=== PATIENT | male | born 1955 | race Caucasian/White ===

== ENCOUNTER → 2017-12-05 08:12 | Outpatient (CLI) | payer OTHER, SELFPAY | PROVIDERS: Visit Provider Internal Medicine | DX: Z11.59 Encounter for screening for other viral diseases (principal) | CPT/HCPCS: 86803; 86804 ==

== ENCOUNTER 2019-07-11 10:25 | Emergency (ER) | payer OTHER, SELFPAY ==
[2019-07-11 10:26] VITALS: BP 159/90; PULSE 73; RESP 15; TEMP 36.7; O2SAT 98; BMI 33.0
--- NOTE | 2019-07-11 10:40 | ED.DCSUM_ITS ---
- ER Visit Summary Date of Service: 07/11/19 Chief Complaint: Accidentally took 4 amlodipine History of Present Illness: The patient is a 63 M G of [id number]-quhkclhjs diabetes and hypertension. He is on amlodipine for high blood pressure. Recently developed poison jamila in his upper extremities he was supposed to take for prednisone this morning. He accidentally took 4 of his amlodipine. He denies any symptoms at all. He does not feel lightheaded or dizzy. He has not passed out. This occurred around 9 AM it is now been an hour and a half since that time. Physical Examination: Older male no acute distress. Vital signs are stable and afebrile. H EENT exam unremarkable. Neck nontender. Lungs clear to auscultation bilaterally. Heart regular rate and rhythm rate about 70 no murmur. Abdomen soft nontender normal bowel sounds no peritoneal signs. Patient moving all 4 extremities. Neurovascular intact. Calves are nontender without edema. Neurologically is awake alert with no focal motor deficits. Test Results: None Emergency Department Course and Treatment: Patient He took for his amlodipine pills. He will be watched for an hour and recheck his blood pressure. He mentioned earlier this week he was having lower abdominal discomfort. He was seen by his primary care physician. They have a plan on that. He states is actually getting better and does not want to be worked up for it. Currently he is not having any abdominal pain. Treatment Plan: Return if feeling lightheaded or dizzy. Disposition: Discharge Impression: Accidental overdose on his amlodipine This note was generated with [employer] dictation software. It may contain incorrect words, spelling, and punctuation that were not noted in review of the chart prio r to signing ED Disposition - Plan for ED Patient: Referrals: Isra Pastor MD [Primary Care Provider] -
--- NOTE | 2019-07-11 10:43 | ED.DEP ---
ED Disposition - Plan for ED Patient: Disposition: Home or Assisted Living Instructions: OVERDOSE, Accidental (Adult) Referrals: Dimitris Strickland MD [STAFF PHYSICIAN] - Additional Instructions: Return if feeling lightheaded or dizzy or feeling worse. Continue your other regular medications.
[2019-07-11 11:02] VITALS: BP 145/68; PULSE 72; RESP 14
[2019-07-11 11:33] VITALS: BP 134/73; PULSE 69; RESP 16
[2019-07-11 11:41] VITALS: BP 134/79; PULSE 74; RESP 16
== END 2019-07-11 11:43 | disposition home or self-care (01) ==
LOC: ED 10:54
PROVIDERS: Emergency Provider Emergency Medicine; Family Provider Internal Medicine; PCP Internal Medicine
DX: T46.1X1A Poisoning by calcium-channel blockers, accidental (unintentional), initial encounter (principal); Y92.9 Unspecified place or not applicable; E11.9 Type 2 diabetes mellitus without complications; I10 Essential (primary) hypertension; Z79.84 Long term (current) use of oral hypoglycemic drugs; Z79.899 Other long term (current) drug therapy
CPT/HCPCS: 99283; A4216

== ENCOUNTER → 2023-03-10 | Outpatient (CLI) | payer MEDICARE, OTHER, SELFPAY | END | disposition home or self-care (01) | PROVIDERS: PCP Internal Medicine; Referring Provider Otolaryngology Otolaryngology/Facial Plastic Surgery; Visit Provider Otolaryngology Otolaryngology/Facial Plastic Surgery | DX: J32.9 Chronic sinusitis, unspecified (principal) | CPT/HCPCS: 87070; 87205 ==

== ENCOUNTER → 2023-04-04 | Outpatient (CLI) | payer MEDICARE, OTHER, SELFPAY ==
--- NOTE | 2023-04-04 13:00 | CT_ITS ---
HISTORY: Headaches. TECHNIQUE: CT images of the paranasal sinuses were obtained without intravenous contrast. Coronal and sagittal reformations were obtained. 801 images. Comparison none. FINDINGS: FRONTAL/ETHMOID SINUSES: Severe opacification of the right frontoethmoid sinus with air-fluid level. Mild opacification of the left ethmoid air cells. MAXILLARY SINUSES: Complete opacification of the right maxillary sinus with mild expansion of the maxillary sinus bulging into the retroantral fat-pad. No significant air fluid levels on the left. No cortical erosion. OSTIOMEATAL COMPLEXES: Obstructed and expanded on the right. Philippe''s cell with mild narrowing of the left. SPHENOID SINUS: Minimal right mucosal thickening. NASAL CAVITY: Opacification extends into the right nasal cavity. Minimal left septal deviation with a small nonobstructing spur. ORBITS: Symmetric contents. MASTOID AIR CELLS: Mild aerated bilaterally. CT/Sinus/Facial Bone IMPRESSION: Complete opacification of the right maxillary sinus extending into the nasal cavity with expansion and occlusion of the ostiomeatal complex, concerning for sinonasal polyposis or mucocele. Severe right frontal ethmoid sinusitis. Electronically Signed: Bertha Valentino MD at 15:25 EDT ,
== END | disposition home or self-care (01) ==
LOC: CT 12:53
PROVIDERS: PCP Internal Medicine; Referring Provider Otolaryngology; Visit Provider Otolaryngology
DX: J32.0 Chronic maxillary sinusitis (principal)
CPT/HCPCS: 70486

== ENCOUNTER → 2024-06-02 | Outpatient (CLI) | payer MEDICARE, OTHER, SELFPAY ==
--- NOTE | 2024-06-02 10:47 | VDLE_ITS ---
Reason For Study: BLE Pain RIGHT LEFT GSV is normal. GSV is normal. CFV is compressible, spontaneous, phasic, CFV is compressible, spontaneous, phasic, competent and demonstrates normal competent, and demonstrates normal augmentation. augmentation. FV is compressible, spontaneous, phasic, FV is compressible, spontaneous, phasic, competent and demonstrates normal competent and demonstrates normal augmentation. augmentation. POP V is compressible, spontaneous, phasic, POP V is compressible, spontaneous, phasic, competent and demonstrates normal competent and demonstrates normal augmentation. augmentation. T/P Trunk is compressible. T/P Trunk is compressible. PTV is compressible. PTV is compressible. RT PerV is compressible. LT PerV is compressible. Procedure This is a venous duplex using B-mode, color flow and spectral Doppler. Exam performed in department. The exam was diagnostic. A preliminary report was called and/or faxed to Dr. Yates office. VL/Venous Duplex US - Elvis Extrem Interpretation Summary Deep veins of the bilateral lower extremities are patent and compressible segme ntally. There is no evidence of bilateral lower extremity deep vein thrombosis. The bilateral great saphenous veins appear patent and compressible segmentally. Ordering Physician: Harpreet Yates Referring Physician: Dimitris Strickland M.D. Performed By: Macario Mclaughlin RVT
== END | disposition home or self-care (01) ==
LOC: CVS 10:43
PROVIDERS: PCP Internal Medicine; Visit Provider Podiatrist
DX: M79.604 Pain in right leg (principal); M79.605 Pain in left leg; R22.41 Localized swelling, mass and lump, right lower limb; R22.42 Localized swelling, mass and lump, left lower limb
CPT/HCPCS: 93970

== ENCOUNTER 2025-05-19 07:30 | Outpatient (RCR) | payer MEDICARE, OTHER, SELFPAY ==
--- NOTE | 2025-04-13 10:16 | HP.PTEVAL_ITS ---
Patient's Visit Information Visit Information Visit Information: UBALDO NICOLAS is a 69 year old M referred to Physical Therapy by Dr. Harpreet Yates DPM with a diagnosis of Anterior Tib. Date of Evaluation: 04/13/25 Physical Therapist: Clair Mayen DPT Visit Plan Frequency: 2-3x /Week Duration: 4 Weeks Plan: Focus on Balance, Ankle DF and Gastroc Mobility- indep with gym program for LE and core strength/stabilization. HEP given IE: SLS, Seated DF, Gastroc Stretch with Towel Subjective Subjective: Patient reports that his left foot has been bothering him- he has had 2 MRI's- lots of swelling from the knee down. He has not had to use the compression socks for the past few days but its still stiff and the last MRI is showing that partial-thickness tearing near the insertion of the Tibialis Anterior. Stiff all the time- but its hard to get around on uneven surfaces. He has not been walking as much as normal. Its not really painful its just stiff then its hard to move. He does feel that if he sits for awhile he does have some slapping of the left foot. He retired at the end of May and since the he feels like things have degenerated. His goals are to get moving again. He has not had any recent falls. Decreased stamina. No ankle braces-no cane. Most comfortable in HOKA's. He does have some neuropathy in his feet but no new N/T. If he is sitting he tries to keep his feet moving. He is taking different suppliments and it seems to be helping. Sleep: not disturbed. The flexibility DF/PF is the biggest issue. PMHx/Meds: see list in chart. Objective Objective: Posture: forward head, rounded shoulders- can correct but does not maintain Gait: slightly antalgic- wide base of support- decreased heel/toe pattern with poor heel strike on the left HR/TR: Heel raise: WNL Toe Raise: diminished by 75% in standing and 50% in sitting SLS: 2-3 seconds then LOB Stairs: asc/desc 8 recip with 1 HR- poor control with descent Palpation: not tender to touch ROM: Left: Hip/Knee: WFL, Ankle: DF: neutral, PF: 40 degrees, Inver: 20 Ever: 10 Strength: Core: fair, Hip: 4+/5 Knee: 5/5, Ankle: DF: 2+/5, PF: 4+/5, Inv: 4/5, Ever: 4/5 Flex: HS: severe, Gastroc: severe, Soleus: moderate Balance/Special Test Scores Lower Extremity Functional Score: 35 Goals Goal 1:: Patient will be I with HEP and progression Goal Time Frame: 4-6 Weeks Goal 2:: Patient will perform a standing TR Goal Time Frame: 4-6 Weeks Goal 3:: Patient will SLS for 10 seconds without LOB Goal Time Frame: 4-6 Weeks Goal 4:: Patient will report 80% improvement Goal Time Frame: 4-6 Weeks Rehabilitation Potential Physical Therapy Diagnosis: Patient presents with hypomobility- he has decreased LE ROM, flexibility, proprioception and muscular endurance leading to poor balance and abnormal gait pattern. Anticipated Interventions Patient/Client Instruction: Educate patient on: Benefits of Fitness Program Therapeutic Exercise to Include: Strength training, Endurance training, Balance training, Coordination, Agility training, Body mechanics, Postural training, Flexibilty training, Gait and locomotor training, Neuromotor development, Passive ROM, Active ROM, Dynamic Lumbar Stabilization and Scapular Strength/Stabilization For the Purpose of:: To improve muscle performance and motor function Manual Therapy Techniques to Include: Mobilization and Soft tissue mobilization For the Purpose of:: To increase ROM TENS: Yes Cryotherapy (ice pack, ice massage): Yes Thermo therapy (hot pack): Yes Text: Thank you for the opportunity to evaluate your patient. For Medicare and Medicare HMO plans, please review the plan of care and approve it. It will need to be FAXED BACK to us at [phone] for Medicare purposes. For Medicare only, by signing this I certify the plan of care. Please let me know if there are questions or concerns regarding this plan of care. Physician Signature: Date:
--- NOTE | 2025-05-19 08:11 | HP.PTDCSUM ---
Discharge Summary D/C summary: It has been my pleasure to treat UBALDO NICOLAS referred by Dr. Harpreet Yates DPM, with the diagnosis of Anterior Tib for a total of 13 visit(s). Discharge Date: Please see the following information for a summary of their discharge status. Subjective Subjective: The last two weeks have been much better- has not been using his compression socks. He was able to go hiking with his grandkids and kept up. Pain Left Ankle: Pain Intensity (Out of 10): 0 Overall Improvement % Improvement: 75 Objective Objective/Function: Posture: forward head, rounded shoulders- can correct but does not maintain Gait: slightly antalgic- wide base of support- decreased heel/toe pattern with poor heel strike on the left HR/TR: Heel raise: WNL Toe Raise: diminished by 25% in standing and 25% in sitting SLS: 10 seconds Palpation: not tender to touch ROM: Left: Hip/Knee: WFL, Ankle: DF: neutral, PF: 40 degrees, Inver: 20 Ever: 10 Strength: Core: fair, Hip: 4+/5 Knee: 5/5, Ankle: DF: 3/5, PF: 4+/5, Inv: 4/5, Ever: 4/5 Flex: HS: severe, Gastroc: severe, Soleus: moderate Goals Goal 1:: Patient will be I with HEP and progression Goal Progress: Goal Met Goal 2:: Patient will perform a standing TR Goal Progress: Goal Met Goal 3:: Patient will SLS for 10 seconds without LOB Goal Progress: Goal Met Goal 4:: Patient will report 80% improvement Goal Progress: Progressing Plan Plan: Discharge to I HEP D/C Information d/c sentence: If there are questions or concerns regarding this patient's physical therapy, please feel free to call me at [phone]. Thank you for the referral of this patient. Sincerely, Clair Mayen, KATT Balance/Gait/Functional tests Balance/Special Test Scores Lower Extremity Functional Score: 56 Improvement % Improvement: 75
== END 2025-05-19 10:45 | disposition home or self-care (01) ==
LOC: PT 07:30
PROVIDERS: PCP Internal Medicine; Referring Provider Podiatrist; Visit Provider Podiatrist
DX: M77.52 Other enthesopathy of left foot and ankle (principal)
CPT/HCPCS: 97110; 97162; 97530